=== PATIENT | female | born 1940 | race Caucasian/White ===

== ENCOUNTER 2017-08-23 13:00 | Inpatient (IN) | payer OTHER ==
[~2017-08-23] VITALS: Ht 142.2 cm; Wt 59.0 kg
[2017-08-23] MEDS ORDERED: JANUMET XR 50-1 EAC1 PO (14:23)
[2017-08-23] MEDS ORDERED: LANTUS (14:23)
[2017-08-23] MEDS ORDERED: COZAAR100 MG PO (14:24)
[2017-08-23] MEDS ORDERED: EVISTA60 MG PO (14:24)
[2017-08-23] MEDS ORDERED: PRAVACHOL80 MG PO (14:25)
[2017-08-23] MEDS ORDERED: PLAVIX75 MG PO (14:25)
[2017-08-29] MEDS ORDERED: DOCUSATE SODIU100 MG PO (07:48)
[2017-08-29] MEDS ORDERED: GABAPENTIN800 MG PO (07:48)
[2017-08-29] MEDS ORDERED: AMOX-CLAV 875-1 EACH PO (07:49)
[2017-08-29] MEDS ORDERED: PERCOCET 5-3251 EACH PO (07:50)
[2017-08-29] MEDS ORDERED: CLONAZEPAM1 MG PO (07:50)
== END 2017-08-29 15:42 | disposition home or self-care (01) | DRG 454 ==
LOC: SURG 08-28 04:40 → O/R 08-28 04:40 → SURG 08-28 15:53 → O/R 08-28 16:45 → SURG 08-29 15:42
PROVIDERS: Orthopaedic Surgery Orthopaedic Surgery of the Spine
PROC: 0SG0071 Fusion of Lumbar Vertebral Joint with Autologous Tissue Substitute, Posterior Approach, Posterior Column, Open Approach (ICD-10-PCS; 2017-08-28)
PROC: 0ST20ZZ Resection of Lumbar Vertebral Disc, Open Approach (ICD-10-PCS; 2017-08-28)
PROC: 0SG00AJ Fusion of Lumbar Vertebral Joint with Interbody Fusion Device, Posterior Approach, Anterior Column, Open Approach (ICD-10-PCS; 2017-08-28)
PROC: 07DS3ZZ Extraction of Vertebral Bone Marrow, Percutaneous Approach (ICD-10-PCS; 2017-08-28)
PROC: 0SG00A0 Fusion of Lumbar Vertebral Joint with Interbody Fusion Device, Anterior Approach, Anterior Column, Open Approach (ICD-10-PCS; principal; 2017-08-28 16:45)
DX: M48.061 Spinal stenosis, lumbar region without neurogenic claudication (principal); M51.06 Intervertebral disc disorders with myelopathy, lumbar region; M43.16 Spondylolisthesis, lumbar region; E11.9 Type 2 diabetes mellitus without complications; I10 Essential (primary) hypertension